=== PATIENT | female | born 1990 | race American Indian/Alaskan Native ===

== ENCOUNTER 2017-05-03 09:32 | Emergency (ER) | payer SELFPAY ==
[2017-05-03 09:50] VITALS: BP 127/75
--- NOTE | 2017-05-03 10:18 | XRay Report ---
RIGHT HAND RADIOGRAPHS INDICATION: Injury. COMPARISON: None similar at this institution. FINDINGS: AP, lateral and oblique right hand radiographs demonstrate intact bones, joints and soft tissues. CONCLUSION: No acute displaced fracture identified. Please correlate. Thank you for the opportunity to participate in this patient's care.
== END 2017-05-03 12:30 | disposition left against medical advice (07) ==
LOC: ED 09:32
DX: Z53.21 Procedure and treatment not carried out due to patient leaving prior to being seen by health care provider (principal)